=== PATIENT | female | born 1990 | race Two or more races ===

== ENCOUNTER 2017-12-24 09:07 | Emergency (ER) | payer MEDICAID, OTHER ==
[~2017-12-24] VITALS: Ht 154.9 cm; Wt 56.0 kg
[2017-12-24 11:46] VITALS: BP 109/72
[2017-12-24] MEDS ORDERED: CYCL-1 PO (11:53)
[2017-12-24] MEDS ORDERED: IBUP-1984 PO (11:53)
== END 2017-12-24 12:12 | disposition home or self-care (01) ==
LOC: ER 09:08
DX: M54.2 Cervicalgia (principal); G89.29 Other chronic pain; Z88.5 Allergy status to narcotic agent; Z98.890 Other specified postprocedural states; Z79.899 Other long term (current) drug therapy
CPT/HCPCS: 72040; 99284

== ENCOUNTER 2017-12-27 08:22 | Emergency (ER) | payer MEDICAID, OTHER ==
[~2017-12-27] VITALS: Ht 154.9 cm; Wt 58.5 kg
[~2017-12-27 08:22] MED LIST: CYCL-1 PO; IBUP-1984 PO
[2017-12-27 08:26] VITALS: BP 105/68
== END 2017-12-27 09:42 | disposition home or self-care (01) ==
LOC: ER 08:23
DX: M54.2 Cervicalgia (principal); M62.838 Other muscle spasm; R20.2 Paresthesia of skin; Z88.5 Allergy status to narcotic agent; Z79.1 Long term (current) use of non-steroidal anti-inflammatories (NSAID); Z79.899 Other long term (current) drug therapy
CPT/HCPCS: 99281; A6449

== ENCOUNTER 2020-02-28 05:57 | Emergency (ER) | payer MEDICAID ==
[~2020-02-28] VITALS: Ht 154.9 cm; Wt 54.1 kg
[~2020-02-28 05:57] MED LIST changes: -IBUP-1984 PO
[2020-02-28] MEDS ORDERED: BACL10TA PO (06:45)
[2020-02-28] MEDS ORDERED: PRED20TA PO (06:45)
[2020-02-28] MEDS ORDERED: ketorolac tromethamine 15mg/ml inj. IM ONE (06:45)
[2020-02-28] MEDS ORDERED: dexamethasone 4mg tablet PO ONE (06:45)
[2020-02-28] MEDS ORDERED: ketorolac trometh. 30mg/ml inj. IM ONE ×2 (06:57→07:00)
[2020-02-28] MEDS ORDERED: ketorolac trometh. 30mg/ml inj. ONE (07:01)
[2020-02-28 07:18] VITALS: BP 122/82
== END 2020-02-28 07:18 | disposition home or self-care (01) ==
LOC: ER 05:57
DX: M54.12 Radiculopathy, cervical region (principal); M54.2 Cervicalgia; R20.0 Anesthesia of skin; G89.29 Other chronic pain; Z98.890 Other specified postprocedural states; Z88.5 Allergy status to narcotic agent; Z79.899 Other long term (current) drug therapy
CPT/HCPCS: 96372; 99283; J1885